=== PATIENT | female | born 2000 | race Asian ===

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

== ENCOUNTER 2023-02-19 20:10 | Emergency (ER) | payer MEDICAID, OTHER ==
[~2023-02-19] VITALS: Ht 154.9 cm; Wt 48.2 kg
[~2023-02-19 20:10] MED LIST: FLUO-177 PO; OLAN5TAB52 PO
[2023-02-19 20:24] VITALS: TEMP 98.1
[2023-02-19 23:00] VITALS: BP 95/62; PULSE 96; RESP 19
[2023-02-19] MEDS ORDERED: NEOM1OIN8 TP (23:13)
[2023-02-19] MEDS ORDERED: NEOMYCIN/BACITRACIN/POLYMYXIN B OINTMENT PACKET TP ONE (23:15)
== END 2023-02-19 23:00 | disposition home or self-care (01) ==
LOC: EMS 20:10
DX: S00.451A Superficial foreign body of right ear, initial encounter (principal); X58.XXXA Exposure to other specified factors, initial encounter; Y93.89 Activity, other specified; Y92.89 Other specified places as the place of occurrence of the external cause; Y99.8 Other external cause status
CPT/HCPCS: 99282; Z7502; Z7610